=== PATIENT | male | born 1960 | race African-American/Black ===

== ENCOUNTER 2017-06-27 19:12 | Inpatient (IN) | payer BC, OTHER ==
[~2017-06-27] VITALS: Ht 170.2 cm; Wt 95.7 kg
[~2017-06-27 19:12] MED LIST: AMOXICILLIN 50500 MG PO; CLARITIN10 M2 PO; CRESTOR10 MG PO; DEMEROL50 MG PO; EPIPEN0.3 MG/0.3 IM; HYDROCODONE-AP1 EAC6 PO; NORCO 5-325 TA1 EACH PO; PEPCID40 MG PO; PREDNISONE 20 M20 M1 PO
[2017-06-27 19:16] VITALS: BP 147/101
[2017-06-27] MEDS ORDERED: COZAAR 25 MG TA25 M1 PO (19:19)
[2017-06-27] MEDS ORDERED: PREDNISONE50 MG PO (19:30)
[2017-06-27 19:31] LABS: ABSOLUTE NEUTROPHILS 3.5 thou/uL (1.4-8.2); BASOPHILS 0.8 % (0.0-2.0); EOSINOPHILS 1.1 % (0.0-3.0); HEMATOCRIT 42.9 % (42.0-52.0); HEMOGLOBIN 14.3 gm/dL (14.0-18.0); LYMPHOCYTES 46.1 % (24.0-44.0); MCH 30.3 pg (26.0-34.0); MCHC 33.4 g/dL (28.0-37.0); MCV 90.9 fL (80.0-100.0); MONOCYTES 6.2 % (1.0-8.0); PLATELET COUNT 231 thou/uL (150-400); POLYS 45.8 % (36.0-66.0); RBC 4.72 mil/uL (4.50-6.00); RDW 13.6 % (10.5-14.5); WBC 7.6 thou/uL (4.0-11.0)
[2017-06-27 19:34] LABS: CALCIUM 8.8 mg/dL (8.5-10.1)
[2017-06-27 20:48] VITALS: BP 144/94
[2017-06-27 21:12] VITALS: BP 122/55
[2017-06-27 22:14] VITALS: BP 130/70
[2017-06-27 23:34] VITALS: BP 123/72
[2017-06-28 02:34] VITALS: BP 123/72
[2017-06-28 06:13] LABS: CALCIUM 8.9 mg/dL (8.5-10.1); CREATININE 1.1 mg/dL (0.7-1.3); POTASSIUM 4.8 mmol/L (3.5-5.1)
[2017-06-28 08:15] VITALS: BP 150/93
[2017-06-28 12:22] VITALS: BP 143/86
[2017-06-28 12:50] VITALS: BP 143/86
[2017-06-28] MEDS ORDERED: NORVASC10 MG PO (14:08)
[2017-06-28] MEDS ORDERED: PREDNISONE 20 M20 MG PO ×2 (14:10→14:16)
== END 2017-06-28 16:50 | disposition home or self-care (01) | DRG 916 ==
LOC: ER 19:12 → EROBS 20:46 → 3W 20:46
PROVIDERS: Emergency Medicine; Nurse Practitioner Family
DX: T78.3XXA Angioneurotic edema, initial encounter (principal); I10 Essential (primary) hypertension; E78.5 Hyperlipidemia, unspecified; F17.210 Nicotine dependence, cigarettes, uncomplicated; E78.00 Pure hypercholesterolemia, unspecified; T78.1XXA Other adverse food reactions, not elsewhere classified, initial encounter; X58.XXXA Exposure to other specified factors, initial encounter; Z79.899 Other long term (current) drug therapy; Z88.8 Allergy status to other drugs, medicaments and biological substances; Z91.013 Allergy to seafood
CPT/HCPCS: 10779